=== PATIENT | male | born 1950 | race African-American/Black ===

== ENCOUNTER 2022-03-08 19:40 | Emergency (ER) | payer MEDICAID, OTHER ==
[~2022-03-08] VITALS: Ht 175.3 cm; Wt 84.0 kg
[2022-03-08 21:07] LABS: CHLORIDE 99 mEq/L (98-107)
[2022-03-08 21:15] LABS: BASOPHILS % 0.5 % (0.0-2.0); EOSINOPHILS % 0.3 % (0.0-5.0); HEMATOCRIT. 46.4 % (42.0-52.0); HEMOGLOBIN. 15.3 g/dL (14.0-18.0); LYMPHOCYTES % 9.7 % (20.0-50.0); MEAN CORPUSCULAR HEMOGLOBIN 28.9 pg (28.0-32.0); MEAN PLATELET VOLUME 8.1 fl (7.4-10.4); NEUTROPHILS % 82.5 % (40.0-76.0); PLATELET 244 x1000/uL (130-400); RED BLOOD CELL COUNT 5.27 mill/uL (4.7-6.1); RED CELL DISTRIBUTION WIDTH 14.2 % (11.6-14.6)
[2022-03-08 22:27] LABS: CLARITY URINE CLEAR (CLEAR); COLOR URINE YELLOW (YELLOW); KETONES URINE 2+ (NEGATIVE); LEUKOCYTE ESTERASE URINE NEGATIVE (NEGATIVE); NITRITE URINE NEGATIVE (NEGATIVE); OCCULT BLOOD URINE NEGATIVE (NEGATIVE); PH URINE 5.5 (4.5-8.0); PROTEIN URINE 1+ (NEGATIVE); SPECIFIC GRAVITY URINE 1.019 (1.005-1.030)
[2022-03-08] MEDS ORDERED: FAMOTIDINE 20MG TABLET PO SCH (23:00)
[2022-03-09] MEDS ORDERED: DICYCLOMINE HCL 10MG CAPSULE PO SCH
[2022-03-09] MEDS ORDERED: IBUP-2029 MT (00:09)
[2022-03-09] MEDS ORDERED: TAMS-11 MT (00:09)
[2022-03-09] MEDS ORDERED: ACET650T37 MT (00:09)
[2022-03-09] MEDS ORDERED: TAMSULOSIN HCL 0.4MG SR CAPSULE PO SCH (00:15)
[2022-03-09] MEDS ORDERED: KETOROLAC 60MG/2ML VIAL IM SCH (00:15)
[2022-03-09 00:55] VITALS: BP 140/68
== END 2022-03-09 01:10 | disposition home or self-care (01) ==
LOC: ER 19:40
DX: N20.0 Calculus of kidney (principal); N13.30 Unspecified hydronephrosis; N28.9 Disorder of kidney and ureter, unspecified; Z88.0 Allergy status to penicillin; Z88.6 Allergy status to analgesic agent; Z98.890 Other specified postprocedural states
CPT/HCPCS: 36415; 71045; 74176; 80053; 81003; 83690; 85025; 93005; 96372; 99285; J1885